=== PATIENT | female | born 1935 | race Caucasian/White ===

== ENCOUNTER → 2021-04-30 15:05 | Outpatient (CLI) | payer MEDICARE, SELFPAY ==
--- NOTE | ~2021-04-30 | XR_ITS ---
XR chest 2V DATE: 04/30/2021 15:26 INDICATION: Worsening wheezing and shortness of breath with exertion for 2 months TECHNIQUE: 2 views COMPARISON: 08/11/2017 two-view chest FINDINGS: There is bilateral hyperinflation with relative flattening of the diaphragm, suggesting [employer] D. The elderly chest consistent with this appearance. Clinical correlation is advised. Borderline heart size. Aortic calcification and tortuosity. No hilar or mediastinal enlargement. Subtle approximately 8 mm irregular density is suggested overlying the right upper lung; CT thorax is recommended for further evaluation. The lungs otherwise appear clear of infiltrate or consolidation. No pleural effusion or pulmonary vascular congestion or pneumothorax. Moderately prominent anterior wedging and loss of height of L1. Diffuse osteopenia. IMPRESSION: Subtle approximately 8 mm irregular opacity is suggested in the right upper lobe; recomme nd CT thorax for further evaluation Bilateral hyperinflation suggesting COPD Borderline heart size Aortic calcification and tortuosity Chronic L1 fracture deformity, diffuse osteopenia Reviewed, dictated and finalized at location B. [employer] IMPRESSION: Subtle approximately 8 mm irregular opacity is suggested in the rig ht upper lobe; recommend CT thorax for further evaluation Bilateral hyperinflation suggesting COPD Borderline heart size Aortic calcification and tortuosity Chronic L1 fracture deformity, diffuse osteopenia
== END ==
PROVIDERS: PCP Internal Medicine; Visit Provider Internal Medicine
DX: R06.2 Wheezing (principal); R06.02 Shortness of breath; R91.8 Other nonspecific abnormal finding of lung field
CPT/HCPCS: 71046